=== PATIENT | female | born 1990 | race Caucasian/White ===

== ENCOUNTER 2021-10-29 14:58 | Emergency (ER) | payer OTHER ==
[2021-10-29] MEDS ORDERED: ACETAMINOPHEN 1000 MG/100 ML BAG IVPB ONE (15:09)
[2021-10-29] MEDS ORDERED: LACTATED RINGERS SOLUTION 1000 ML INFUS.BAG IV ONE (15:09)
[2021-10-29 15:15] VITALS: BMI 24.3
[2021-10-29] MEDS ORDERED: ACETAMINOPHEN INJECTION 100 ML IVPB ONE (15:19)
[2021-10-29 15:59] LABS: ACTIVATED PTT 29.2 SECONDS (25.2-36.5)
[2021-10-29 16:04] LABS: INR 1.06 (0.83-1.09); PROTHROMBIN TIME (PATIENT) 11.8 SEC (9.7-13.0)
[2021-10-29 16:04] LABS: ALBUMIN 4.1 g/dl (3.4-5.0); BILIRUBIN,TOTAL 0.6 mg/dl (0.2-1); CALCIUM 9.3 mg/dl (8.5-10); CREATININE 0.7 mg/dl (0.55-1.3)
[2021-10-29 16:40] LABS: BASO % 0.4 % (0-2.0); EOS % 0.9 % (0-4.5); HEMATOCRIT 37.5 % (32.4-45.2); LYMPH % 25.2 % (8-40); MCH 32.2 pg (25.7-33.7); MCHC 34.8 g/dl (32.0-36.0); MEAN CELL VOLUME 92.5 fl (80-96); MONO % 7.3 % (3.8-10.2); NEUT % 66.2 % (42.8-82.8); PLATELET COUNT 249 10^3/uL (134-434); RBC 4.05 M/mm3 (3.60-5.2); RDW 12.6 % (11.6-15.6); WHITE BLOOD COUNT 8.8 K/mm3 (4.0-10.0)
[2021-10-29 17:40] VITALS: BP 118/70; PULSE 65; TEMP 98.1
== END 2021-10-29 17:40 | disposition home or self-care (01) ==
LOC: FER 14:58
PROC: 3E0333Z Introduction of Anti-inflammatory into Peripheral Vein, Percutaneous Approach (ICD-10-PCS; principal; 2021-10-29)
DX: N93.9 Abnormal uterine and vaginal bleeding, unspecified (principal)
CPT/HCPCS: 36415; 76817-TC; 80053; 84702; 85025; 85610; 85730; 86850; 86900; 86901; 99284-25; J0131